=== PATIENT | male | born 1935 | race Caucasian/White ===

== ENCOUNTER → 2018-07-22 | Outpatient (CLI) | payer MEDICARE ==
[~2018-07-22] MED LIST: ASCO10007 PO; ATEN25TA PO; CALC1CAP22 PO; DIGOXIN PO; DOCU-272 PO; POTASSIUM GLUCONATE PO; SIMV40TA5 PO; [UNRECOGNIZED DRUG - CODE] PO
== END | disposition home or self-care (01) ==
LOC: RAH 09:28
PROVIDERS: ATTEND Urology
DX: N40.0 Benign prostatic hyperplasia without lower urinary tract symptoms (principal); M51.37 Other intervertebral disc degeneration, lumbosacral region; R31.0 Gross hematuria
CPT/HCPCS: 74176

== ENCOUNTER → 2018-09-16 | Outpatient (CLI) | payer MEDICARE | END | disposition home or self-care (01) | LOC: RAH 13:30 | PROVIDERS: ATTEND Internal Medicine | DX: R60.0 Localized edema (principal) | CPT/HCPCS: 93970 ==

== ENCOUNTER 2019-08-08 13:24 | Emergency (ER) | payer MEDICARE ==
[~2019-08-08 13:24] MED LIST changes: +SIMV-46 PO; -SIMV40TA5 PO
== END 2019-08-08 15:49 | disposition home or self-care (01) ==
LOC: EDH 13:24
DX: J20.9 Acute bronchitis, unspecified (principal); Z91.041 Radiographic dye allergy status; Z88.7 Allergy status to serum and vaccine; Z88.6 Allergy status to analgesic agent; E78.00 Pure hypercholesterolemia, unspecified; Z98.890 Other specified postprocedural states
CPT/HCPCS: 71046; 87804